=== PATIENT | female | born 1935 | race Caucasian/White ===

== ENCOUNTER → 2017-02-07 | Outpatient (CLI) | payer MEDICARE ==
[2017-02-07 11:30] LABS: BASOPHILS % (AUTO) 1 % (0-2); EOSINOPHILS # (AUTO) 0.1 10^3uL; EOSINOPHILS % (AUTO) 2 % (0-4); LYMPHOCYTES # (AUTO) 1.2 X10^3; MEAN CORPUSCULAR HEMOGLOBIN 30.7 PG (26.0-34.0); MEAN CORPUSCULAR HGB CONC 33.2 g/dL (31.0-37.0); MEAN CORPUSCULAR VOLUME 92 FL (80-100); MONOCYTES # (AUTO) 0.5 X10^3; MONOCYTES % (AUTO) 9 % (3-11); NEUTROPHILS # (AUTO) 3.2 X10^3; NEUTROPHILS % (AUTO) 64 % (51-67); PLATELET COUNT 184 10^3uL (150-450); WHITE BLOOD COUNT 4.95 10^3uL (4.0-11.0)
[2017-02-07 14:06] LABS: CALCULATED IONIZED CALCIUM 4.4 mg/dL (3.8-4.6); TOTAL PROTEIN 6.7 g/dL (6.4-8.5)
== END ==
LOC: LAB 11:15
PROVIDERS: ATTEND Internal Medicine
DX: Z00.00 Encounter for general adult medical examination without abnormal findings (principal); E78.4 Other hyperlipidemia; I10 Essential (primary) hypertension; E03.8 Other specified hypothyroidism; M81.0 Age-related osteoporosis without current pathological fracture; R60.9 Edema, unspecified
CPT/HCPCS: 36415; 80053; 80061; 82306; 84443; 85025